=== PATIENT | female | born 1985 | race Caucasian/White ===

== ENCOUNTER 2016-09-04 00:02 | Emergency (ER) | payer OTHER ==
[~2016-09-04] VITALS: Ht 160 cm; Wt 44.5 kg
[~2016-09-04 00:02] MED LIST: CIPRO250 MG PO; MOTRIN800 MG PO; NKHM
== END 2016-09-04 00:53 | disposition home or self-care (01) ==
LOC: ED 00:02
DX: S30.860A Insect bite (nonvenomous) of lower back and pelvis, initial encounter (principal); F17.200 Nicotine dependence, unspecified, uncomplicated; W57.XXXA Bitten or stung by nonvenomous insect and other nonvenomous arthropods, initial encounter; Y93.9 Activity, unspecified; Y92.9 Unspecified place or not applicable; Y99.9 Unspecified external cause status